=== PATIENT | female | born 1995 | race Caucasian/White ===

== ENCOUNTER 2018-10-03 12:09 | Inpatient (IN) | payer OTHER, MEDICAID ==
[2018-10-03 13:27] LABS: ADD UMIC NO; UR ASCORBIC ACID NEGATIVE (NEGATIVE); UR BILIRUBIN (Dip) NEGATIVE (NEGATIVE); UR BLOOD (Dip) NEGATIVE (NEGATIVE); UR CLARITY CLEAR (CLEAR); UR COLOR YELLOW (YELLOW); UR GLUCOSE (Dip) NEGATIVE (NEGATIVE); UR KETONES (Dip) NEGATIVE (NEGATIVE); UR LEUKOCYTE ESTERASE (Dip) NEGATIVE Leu/ul (NEGATIVE); UR NITRITE (Dip) NEGATIVE (NEGATIVE); UR SPECIFIC GRAVITY (Dip) 1.009 (1.003-1.030); UR TOTAL PROTEIN (Dip) NEGATIVE (NEGATIVE); UR UROBILINOGEN (Dip) NEGATIVE (NEGATIVE)
[2018-10-03 13:30] LABS: ADD MAN DIFF? NO
[2018-10-03 13:32] LABS: WHITE BLOOD COUNT 8.1 10^3/ul (4.8-10.8)
[2018-10-03 13:32] LABS: BASOPHILS % 0.4 % (0.0-2.0); EOSINOPHILS % 0.1 % (0.0-7.0); HEMATOCRIT 36.4 % (37.0-47.0); HEMOGLOBIN 12.5 g/dl (12.0-16.0); LYMPHOCYTES # 0.7 10^3/ul (0.8-2.9); LYMPHOCYTES % 8.5 % (15.0-51.0); MEAN CORPUSCULAR HEMOGLOBIN 32.1 pg (29.0-33.0); MEAN CORPUSCULAR HGB CONC 34.3 g/dl (32.0-37.0); MEAN CORPUSCULAR VOLUME 93.3 fl (82.0-101.0); MEAN PLATELET VOLUME 9.6 fl (7.4-10.4); MONOCYTE # 0.7 10^3/ul (0.3-0.9); MONOCYTES % 8.4 % (0.0-11.0); NEUTROPHIL # 6.6 10^3/ul (1.6-7.5); PLATELET COUNT 232 10^3/UL (140-415); RED CELL DISTRIBUTION WIDTH 12.4 % (11.5-14.5)
[2018-10-03 13:52] LABS: ALANINE AMINOTRANSFERASE 16 IU/L (13-69); ALBUMIN/GLOBULIN RATIO 1.14; ALKALINE PHOSPHATASE 79 IU/L (42-121); ANION GAP 12 (5-13); ASPARTATE AMINO TRANSFERASE 25 IU/L (15-46); BILIRUBIN,INDIRECT 0.2 mg/dl (0-1.1); BILIRUBIN,TOTAL 0.2 mg/dl (0.2-1.3); BLOOD UREA NITROGEN 7 mg/dl (7-20); CALCIUM 9.4 mg/dl (8.4-10.2); CARBON DIOXIDE 25 mmol/L (21-31); CHLORIDE 102 mmol/L (97-110); CREATININE 0.47 mg/dl (0.44-1.00); Estimated GFR > 60 mL/min (>60); GLUCOSE 82 mg/dl (70-220); POTASSIUM 3.7 mmol/L (3.5-5.1); SODIUM 139 mmol/L (135-144); TOTAL PROTEIN 7.5 g/dl (6.1-8.1)
[2018-10-03 13:52] LABS: URIC ACID 3.4 mg/dl (3.1-7.9)
[2018-10-03] MEDS: LABETALOL HCL 20MG INJ IV (15:00)
[2018-10-03] MEDS ORDERED: LABETALOL HCL 20MG INJ IV (15:00)
[2018-10-03] MEDS ORDERED: BETAMET NA PHOS/AC(6 MG/ML) 5ML INJ IM (15:30)
[2018-10-03] MEDS: LACTATED RINGER'S 1,000 ML IV (17:03)
[2018-10-03] MEDS: BETAMET NA PHOS/AC(6 MG/ML) 2 ML INJ SYG IM (17:05)
[2018-10-04] MEDS: LACTATED RINGER'S 1,000 ML IV ×3 (00:41→17:33)
[2018-10-04] MEDS: FERROUS SULFATE (EC) 325 MG TAB PO (09:56)
[2018-10-04] MEDS: PRENATAL VITAMIN PO (09:56)
[2018-10-04 11:00] LABS: AMPHETAMINE/METHAMPHETAMINE Negative (NEGATIVE); BARBITURATES Negative (NEGATIVE); BENZODIAZEPINES Negative (NEGATIVE); CANNABINOIDS Positive (NEGATIVE); COCAINE Negative (NEGATIVE); OPIATES Negative (NEGATIVE)
[2018-10-04] MEDS: BETAMET NA PHOS/AC(6 MG/ML) 2 ML INJ SYG IM (17:04)
[2018-10-04 17:22] LABS: COLLECTION PERIOD 24 hrs
[2018-10-04 17:33] LABS: SCRET 0.45 mg/dl (0.44-1.00)
[2018-10-04 18:07] LABS: CREATININE,URINE RANDOM 32.11 mg/dl (20-320)
[2018-10-04 18:14] LABS: COLLECTION PERIOD 24 hrs; CREATININE CLEARANCE 180.9 mls/min (84.0-162.0); VOLUME 3650 ml/24hrs
[2018-10-04 19:33] LABS: 24HR URINE TOTAL PROTEIN 547.5 mg/24hrs (42.0-225.0); VOLUME 3650 mls
[2018-10-05] MEDS: LACTATED RINGER'S 1,000 ML IV ×2 (03:45→06:47)
[2018-10-05] MEDS: PRENATAL VITAMIN PO (08:46)
[2018-10-05] MEDS: FERROUS SULFATE (EC) 325 MG TAB PO (08:46)
== END 2018-10-05 18:49 | disposition home or self-care (01) | DRG 833 ==
LOC: OBT 12:09 → L-D 12:11 → OBT 14:40 → L-D 14:40 → PP1 16:34
DX: O26.892 Other specified pregnancy related conditions, second trimester (principal); R03.0 Elevated blood-pressure reading, without diagnosis of hypertension; R51 Headache; Z3A.25 25 weeks gestation of pregnancy
CPT/HCPCS: 76815; 80053; 80307; 81003; 82575; 84156; 84560; 85025

== ENCOUNTER 2018-10-09 09:31 | Outpatient (CLI) | payer OTHER ==
[2018-10-09 10:37] LABS: ADD UMIC YES; UR ASCORBIC ACID NEGATIVE (NEGATIVE); UR BILIRUBIN (Dip) NEGATIVE (NEGATIVE); UR BLOOD (Dip) 2+ mg/dL (NEGATIVE); UR CLARITY CLEAR (CLEAR); UR COLOR COLORLESS (YELLOW); UR GLUCOSE (Dip) NEGATIVE (NEGATIVE); UR KETONES (Dip) NEGATIVE (NEGATIVE); UR LEUKOCYTE ESTERASE (Dip) NEGATIVE Leu/ul (NEGATIVE); UR NITRITE (Dip) NEGATIVE (NEGATIVE); UR RBC 0 /HPF (0-5); UR SPECIFIC GRAVITY (Dip) 1.001 (1.003-1.030); UR TOTAL PROTEIN (Dip) NEGATIVE (NEGATIVE); UR UROBILINOGEN (Dip) NEGATIVE (NEGATIVE); UR WBC 0 /HPF (0-5)
[2018-10-09 10:42] LABS: ADD MAN DIFF? NO
[2018-10-09 10:44] LABS: WHITE BLOOD COUNT 10.9 10^3/ul (4.8-10.8)
[2018-10-09 10:44] LABS: BASOPHILS % 0.4 % (0.0-2.0); EOSINOPHILS % 0.2 % (0.0-7.0); HEMATOCRIT 36.9 % (37.0-47.0); HEMOGLOBIN 12.6 g/dl (12.0-16.0); LYMPHOCYTES # 1.8 10^3/ul (0.8-2.9); LYMPHOCYTES % 16.1 % (15.0-51.0); MEAN CORPUSCULAR HEMOGLOBIN 31.6 pg (29.0-33.0); MEAN CORPUSCULAR HGB CONC 34.1 g/dl (32.0-37.0); MEAN CORPUSCULAR VOLUME 92.5 fl (82.0-101.0); MEAN PLATELET VOLUME 9.6 fl (7.4-10.4); MONOCYTE # 0.8 10^3/ul (0.3-0.9); NEUTROPHIL # 7.9 10^3/ul (1.6-7.5); NEUTROPHILS % 73.1 % (39.0-77.0); PLATELET COUNT 254 10^3/UL (140-415); RED BLOOD COUNT 3.99 10^6/ul (4.20-5.40); RED CELL DISTRIBUTION WIDTH 12.2 % (11.5-14.5)
[2018-10-09 11:00] LABS: ALANINE AMINOTRANSFERASE 12 IU/L (13-69); ALBUMIN 3.8 g/dl (3.3-4.9); ALBUMIN/GLOBULIN RATIO 1.11; ALKALINE PHOSPHATASE 69 IU/L (42-121); ANION GAP 9 (5-13); ASPARTATE AMINO TRANSFERASE 16 IU/L (15-46); BILIRUBIN,INDIRECT 0.1 mg/dl (0-1.1); BILIRUBIN,TOTAL 0.1 mg/dl (0.2-1.3); BLOOD UREA NITROGEN 8 mg/dl (7-20); CALCIUM 9.1 mg/dl (8.4-10.2); CARBON DIOXIDE 27 mmol/L (21-31); CHLORIDE 102 mmol/L (97-110); CREATININE 0.39 mg/dl (0.44-1.00); Estimated GFR > 60 mL/min (>60); GLUCOSE 79 mg/dl (70-220); POTASSIUM 4.5 mmol/L (3.5-5.1); SODIUM 138 mmol/L (135-144); TOTAL PROTEIN 7.2 g/dl (6.1-8.1); URIC ACID 2.7 mg/dl (3.1-7.9)
[2018-10-09 11:03] LABS: INR 0.87; PROTIME 11.9 Sec (11.9-14.9); PT RATIO 0.9
[2018-10-09 11:04] LABS: PARTIAL THROMBOPLASTIN TIME 25.2 Sec (23.0-35.0)
== END 2018-10-09 12:50 | disposition home or self-care (01) ==
LOC: OBT 09:31 → L-D 09:31 → OBT 12:50
DX: O13.2 Gestational [pregnancy-induced] hypertension without significant proteinuria, second trimester (principal); Z3A.26 26 weeks gestation of pregnancy
CPT/HCPCS: 76815; 76817; 80053; 81001; 82731; 84560; 85025; 85610; 85730

== ENCOUNTER 2018-10-15 10:26 | Outpatient (CLI) | payer OTHER ==
[2018-10-15 11:02] LABS: ADD MAN DIFF? NO
[2018-10-15 11:04] LABS: BASOPHIL # 0.1 10^3/ul (0.0-0.1); BASOPHILS % 0.5 % (0.0-2.0); EOSINOPHILS % 0.3 % (0.0-7.0); HEMATOCRIT 35.3 % (37.0-47.0); HEMOGLOBIN 12.1 g/dl (12.0-16.0); LYMPHOCYTES # 1.4 10^3/ul (0.8-2.9); LYMPHOCYTES % 13.6 % (15.0-51.0); MEAN CORPUSCULAR HEMOGLOBIN 31.8 pg (29.0-33.0); MEAN CORPUSCULAR HGB CONC 34.3 g/dl (32.0-37.0); MEAN CORPUSCULAR VOLUME 92.7 fl (82.0-101.0); MEAN PLATELET VOLUME 9.7 fl (7.4-10.4); MONOCYTE # 0.6 10^3/ul (0.3-0.9); MONOCYTES % 6.1 % (0.0-11.0); NEUTROPHIL # 7.9 10^3/ul (1.6-7.5); NEUTROPHILS % 77.7 % (39.0-77.0); PLATELET COUNT 225 10^3/UL (140-415); RED BLOOD COUNT 3.81 10^6/ul (4.20-5.40); RED CELL DISTRIBUTION WIDTH 12.4 % (11.5-14.5)
[2018-10-15 11:04] LABS: WHITE BLOOD COUNT 10.2 10^3/ul (4.8-10.8)
[2018-10-15 11:11] LABS: UR COLOR YELLOW (YELLOW)
[2018-10-15 11:12] LABS: UR BILIRUBIN (Dip) NEGATIVE (NEGATIVE); UR BLOOD (Dip) NEGATIVE (NEGATIVE); UR CLARITY CLEAR (CLEAR); UR GLUCOSE (Dip) NEGATIVE (NEGATIVE); UR KETONES (Dip) NEGATIVE (NEGATIVE); UR NITRITE (Dip) NEGATIVE (NEGATIVE); UR SPECIFIC GRAVITY (Dip) 1.015 (1.003-1.030); UR TOTAL PROTEIN (Dip) TRACE mg/dl (NEGATIVE); URINE PH (Dip) 6 (5.0-9.0)
[2018-10-15 11:13] LABS: ADD UMIC YES; UR ASCORBIC ACID NEGATIVE (NEGATIVE); UR LEUKOCYTE ESTERASE (Dip) NEGATIVE Leu/ul (NEGATIVE); UR UROBILINOGEN (Dip) NEGATIVE (NEGATIVE)
[2018-10-15 11:14] LABS: UR MUCUS FEW /HPF (NONE SEEN); UR RBC 1 /HPF (0-5); UR SQUAMOUS EPITHELIAL CELL FEW /HPF (FEW); UR WBC 1 /HPF (0-5)
[2018-10-15 11:22] LABS: ALANINE AMINOTRANSFERASE 10 IU/L (13-69); ALBUMIN 3.6 g/dl (3.3-4.9); ALBUMIN/GLOBULIN RATIO 1.12; ALKALINE PHOSPHATASE 70 IU/L (42-121); ANION GAP 7 (5-13); ASPARTATE AMINO TRANSFERASE 17 IU/L (15-46); BILIRUBIN,INDIRECT 0.3 mg/dl (0-1.1); BILIRUBIN,TOTAL 0.3 mg/dl (0.2-1.3); BLOOD UREA NITROGEN 9 mg/dl (7-20); CALCIUM 8.9 mg/dl (8.4-10.2); CARBON DIOXIDE 25 mmol/L (21-31); CHLORIDE 104 mmol/L (97-110); CREATININE 0.41 mg/dl (0.44-1.00); Estimated GFR > 60 mL/min (>60); GLUCOSE 113 mg/dl (70-220); POTASSIUM 3.7 mmol/L (3.5-5.1); SODIUM 136 mmol/L (135-144); TOTAL PROTEIN 6.8 g/dl (6.1-8.1); URIC ACID 3.3 mg/dl (3.1-7.9)
[2018-10-15 11:25] LABS: INR 0.94; PROTIME 12.7 Sec (11.9-14.9)
[2018-10-15 11:26] LABS: PARTIAL THROMBOPLASTIN TIME 25.8 Sec (23.0-35.0)
== END 2018-10-15 14:35 | disposition home or self-care (01) ==
LOC: OBT 10:26 → L-D 10:26 → OBT 14:35
DX: O14.92 Unspecified pre-eclampsia, second trimester (principal); Z3A.27 27 weeks gestation of pregnancy
CPT/HCPCS: 76818; 80053; 81001; 84560; 85025; 85384; 85610; 85730

== ENCOUNTER 2018-11-30 10:50 | Outpatient (CLI) | payer OTHER ==
[2018-11-30 12:31] LABS: ADD MAN DIFF? NO
[2018-11-30 12:40] LABS: BASOPHILS % 0.3 % (0.0-2.0); EOSINOPHILS % 0.4 % (0.0-7.0); HEMATOCRIT 36.7 % (37.0-47.0); HEMOGLOBIN 12.5 g/dl (12.0-16.0); LYMPHOCYTES # 1.4 10^3/ul (0.8-2.9); LYMPHOCYTES % 13.1 % (15.0-51.0); MEAN CORPUSCULAR HEMOGLOBIN 31.6 pg (29.0-33.0); MEAN CORPUSCULAR HGB CONC 34.1 g/dl (32.0-37.0); MEAN CORPUSCULAR VOLUME 92.7 fl (82.0-101.0); MEAN PLATELET VOLUME 10.2 fl (7.4-10.4); MONOCYTE # 0.7 10^3/ul (0.3-0.9); MONOCYTES % 6.3 % (0.0-11.0); NEUTROPHIL # 8.1 10^3/ul (1.6-7.5); NEUTROPHILS % 78.4 % (39.0-77.0); PLATELET COUNT 233 10^3/UL (140-415); RED BLOOD COUNT 3.96 10^6/ul (4.20-5.40); RED CELL DISTRIBUTION WIDTH 13.2 % (11.5-14.5)
[2018-11-30 12:40] LABS: WHITE BLOOD COUNT 10.3 10^3/ul (4.8-10.8)
[2018-11-30 12:50] LABS: UR BACTERIA FEW /HPF (NONE SEEN); UR RBC 1 /HPF (0-5); UR SQUAMOUS EPITHELIAL CELL FEW /HPF (FEW); UR WBC 1 /HPF (0-5)
[2018-11-30 12:57] LABS: ALANINE AMINOTRANSFERASE 8 IU/L (13-69); ALBUMIN 3.6 g/dl (3.3-4.9); ALBUMIN/GLOBULIN RATIO 1.12; ALKALINE PHOSPHATASE 120 IU/L (42-121); ANION GAP 3 (5-13); ASPARTATE AMINO TRANSFERASE 19 IU/L (15-46); BILIRUBIN,INDIRECT 0.4 mg/dl (0-1.1); BILIRUBIN,TOTAL 0.4 mg/dl (0.2-1.3); BLOOD UREA NITROGEN 7 mg/dl (7-20); CALCIUM 9.7 mg/dl (8.4-10.2); CARBON DIOXIDE 26 mmol/L (21-31); CHLORIDE 106 mmol/L (97-110); CREATININE 0.45 mg/dl (0.44-1.00); Estimated GFR > 60 mL/min (>60); GLUCOSE 89 mg/dl (70-220); POTASSIUM 4.2 mmol/L (3.5-5.1); SODIUM 135 mmol/L (135-144); TOTAL PROTEIN 6.8 g/dl (6.1-8.1); URIC ACID 3.4 mg/dl (3.1-7.9)
[2018-11-30 13:10] LABS: INR 0.92; PARTIAL THROMBOPLASTIN TIME 26.1 Sec (23.0-35.0); PROTIME 12.5 Sec (11.9-14.9)
[2018-11-30 13:35] LABS: ADD UMIC NO; UR ASCORBIC ACID NEGATIVE (NEGATIVE); UR BILIRUBIN (Dip) NEGATIVE (NEGATIVE); UR BLOOD (Dip) NEGATIVE (NEGATIVE); UR CLARITY CLEAR (CLEAR); UR COLOR YELLOW (YELLOW); UR GLUCOSE (Dip) NEGATIVE (NEGATIVE); UR KETONES (Dip) NEGATIVE (NEGATIVE); UR LEUKOCYTE ESTERASE (Dip) NEGATIVE Leu/ul (NEGATIVE); UR NITRITE (Dip) NEGATIVE (NEGATIVE); UR SPECIFIC GRAVITY (Dip) 1.013 (1.003-1.030); UR TOTAL PROTEIN (Dip) NEGATIVE (NEGATIVE); UR UROBILINOGEN (Dip) NEGATIVE (NEGATIVE)
== END 2018-11-30 13:40 | disposition home or self-care (01) ==
LOC: OBT 10:50 → L-D 10:52 → OBT 13:40
DX: O14.93 Unspecified pre-eclampsia, third trimester (principal); Z3A.33 33 weeks gestation of pregnancy
CPT/HCPCS: 76815; 80053; 81003; 84560; 85025; 85384; 85610; 85730

== ENCOUNTER 2018-12-25 05:32 | Inpatient (IN) | payer OTHER ==
[2018-12-25] MEDS ORDERED: METHYLERGONOVINE 0.2 MG INJ IM (06:00)
[2018-12-25] MEDS ORDERED: OXYTOCIN 30 UNITS/LR 500 ML IV ×2 (06:00)
[2018-12-25] MEDS ORDERED: LIDOCAINE 1% (MPF) 30 ML INJ INJ (06:00)
[2018-12-25] MEDS ORDERED: MISOPROSTOL 200 MCG TAB PR (06:00)
[2018-12-25] MEDS ORDERED: CARBOPROST 250 MCG INJ IM (06:00)
[2018-12-25] MEDS ORDERED: BUTORPHANOL 2 MG INJ IV (06:00)
[2018-12-25 06:14] LABS: ADD MAN DIFF? NO
[2018-12-25 06:18] LABS: BASOPHILS % 0.3 % (0.0-2.0); EOSINOPHILS # 0.1 10^3/ul (0.0-0.5); EOSINOPHILS % 0.5 % (0.0-7.0); HEMOGLOBIN 12.7 g/dl (12.0-16.0); LYMPHOCYTES # 1.7 10^3/ul (0.8-2.9); LYMPHOCYTES % 17.2 % (15.0-51.0); MEAN CORPUSCULAR HEMOGLOBIN 32.3 pg (29.0-33.0); MEAN CORPUSCULAR HGB CONC 34.3 g/dl (32.0-37.0); MEAN CORPUSCULAR VOLUME 94.1 fl (82.0-101.0); MEAN PLATELET VOLUME 10.4 fl (7.4-10.4); MONOCYTE # 0.7 10^3/ul (0.3-0.9); MONOCYTES % 6.9 % (0.0-11.0); NEUTROPHIL # 7.3 10^3/ul (1.6-7.5); NEUTROPHILS % 74.1 % (39.0-77.0); PLATELET COUNT 230 10^3/UL (140-415); RED BLOOD COUNT 3.93 10^6/ul (4.20-5.40); RED CELL DISTRIBUTION WIDTH 12.7 % (11.5-14.5)
[2018-12-25 06:18] LABS: WHITE BLOOD COUNT 9.9 10^3/ul (4.8-10.8)
[2018-12-25] MEDS: LACTATED RINGER'S 1,000 ML IV ×2 (06:20→13:52)
[2018-12-25 06:25] LABS: ADD UMIC YES; UR ASCORBIC ACID NEGATIVE (NEGATIVE); UR BACTERIA FEW /HPF (NONE SEEN); UR BILIRUBIN (Dip) NEGATIVE (NEGATIVE); UR BLOOD (Dip) NEGATIVE (NEGATIVE); UR CLARITY CLOUDY (CLEAR); UR COLOR YELLOW (YELLOW); UR GLUCOSE (Dip) NEGATIVE (NEGATIVE); UR KETONES (Dip) NEGATIVE (NEGATIVE); UR LEUKOCYTE ESTERASE (Dip) 3+ Leu/ul (NEGATIVE); UR NITRITE (Dip) NEGATIVE (NEGATIVE); UR RBC 3 /HPF (0-5); UR SQUAMOUS EPITHELIAL CELL MANY /HPF (FEW); UR TOTAL PROTEIN (Dip) NEGATIVE (NEGATIVE); UR UROBILINOGEN (Dip) NEGATIVE (NEGATIVE); UR WBC 17 /HPF (0-5)
[2018-12-25 06:38] LABS: INR 0.87; PROTIME 11.9 Sec (11.9-14.9); PT RATIO 0.9
[2018-12-25 06:39] LABS: PARTIAL THROMBOPLASTIN TIME 25.3 Sec (23.0-35.0)
[2018-12-25 06:55] LABS: ALANINE AMINOTRANSFERASE 19 IU/L (13-69); ALBUMIN 3.6 g/dl (3.3-4.9); ALBUMIN/GLOBULIN RATIO 0.97; ALKALINE PHOSPHATASE 170 IU/L (42-121); ANION GAP 8 (5-13); ASPARTATE AMINO TRANSFERASE 27 IU/L (15-46); BILIRUBIN,INDIRECT 0.4 mg/dl (0-1.1); BILIRUBIN,TOTAL 0.4 mg/dl (0.2-1.3); BLOOD UREA NITROGEN 11 mg/dl (7-20); CARBON DIOXIDE 23 mmol/L (21-31); CHLORIDE 107 mmol/L (97-110); CREATININE 0.46 mg/dl (0.44-1.00); Estimated GFR > 60 mL/min (>60); GLUCOSE 75 mg/dl (70-220); POTASSIUM 4.3 mmol/L (3.5-5.1); SODIUM 138 mmol/L (135-144); TOTAL PROTEIN 7.3 g/dl (6.1-8.1); URIC ACID 4.1 mg/dl (3.1-7.9)
[2018-12-25 07:26] LABS: HEPATITIS B SURFACE ANTIGEN NEGATIVE (NEGATIVE)
[2018-12-25] MEDS: MISOPROSTOL 50 MCG CAPSULE PO ×4 (07:55→20:14)
[2018-12-25 15:12] LABS: RAPID PLASMA REAGIN NONREACTIVE (NR)
[2018-12-26] MEDS: MISOPROSTOL 50 MCG CAPSULE PO ×2 (00:06→04:25)
[2018-12-26] MEDS: LACTATED RINGER'S 1,000 ML IV ×5 (00:07→15:34)
[2018-12-26] MEDS: OXYTOCIN 30 UNITS/LR 500 ML IV ×2 (11:29→19:06)
[2018-12-26] MEDS ORDERED: FENTAnyl 2MCG/ML-ROPIV 0.2% 100 ML (14:41)
[2018-12-26] MEDS ORDERED: MINERAL OIL LIGHT 10 ML VIAL TOP (17:50)
[2018-12-26] MEDS ORDERED: DIPHENHYDRAMINE 25 MG CAP PO (19:30)
[2018-12-26] MEDS ORDERED: OXYTOCIN 30 UNITS/LR 500 ML IV (19:30)
[2018-12-26] MEDS ORDERED: CARBOPROST 250 MCG INJ IM (19:30)
[2018-12-26] MEDS ORDERED: ONDANSETRON 4 MG TAB PO (19:30)
[2018-12-26] MEDS ORDERED: ONDANSETRON 4 MG INJ IV (19:30)
[2018-12-26] MEDS ORDERED: MISOPROSTOL 200 MCG TAB PR (19:30)
[2018-12-26] MEDS ORDERED: NA PHOSPHATE/BIPHOS 133 ML ENEMA PR (19:30)
[2018-12-26] MEDS ORDERED: HYDROCODONE/APAP (5/325) TAB PO ×2 (19:30)
[2018-12-26] MEDS ORDERED: DIPHENHYDRAMINE 50 MG INJ IV (19:30)
[2018-12-26] MEDS ORDERED: SENNA/DOCUSATE NA (8.6MG/50MG) TAB PO (19:30)
[2018-12-26] MEDS ORDERED: DIBUCAINE 1% 30 GM OINT TOP (19:30)
[2018-12-26] MEDS: SENNA/DOCUSATE NA (8.6MG/50MG) TAB PO (20:53)
[2018-12-26] MEDS: LANOLIN HPA 1 PKT TOP (20:53)
[2018-12-26] MEDS: WITCH HAZEL/GLYCERIN PAD PR (20:54)
[2018-12-26] MEDS: BENZOCAINE 20% 56 ML SPRAY TOP (20:54)
[2018-12-26] MEDS: LACTATED RINGER'S 1,000 ML IV* (23:36)
[2018-12-27] MEDS: IBUPROFEN 600 MG TAB PO ×5 (00:30→23:45)
[2018-12-27] MEDS: LACTATED RINGER'S 1,000 ML IV* ×3 (03:08→20:54)
[2018-12-27 08:16] LABS: ADD MAN DIFF? NO
[2018-12-27] MEDS: SENNA/DOCUSATE NA (8.6MG/50MG) TAB PO ×2 (08:26→21:03)
[2018-12-27 08:31] LABS: WHITE BLOOD COUNT 14.7 10^3/ul (4.8-10.8)
[2018-12-27 08:31] LABS: BASOPHILS % 0.1 % (0.0-2.0); EOSINOPHILS % 0.1 % (0.0-7.0); HEMATOCRIT 33.2 % (37.0-47.0); HEMOGLOBIN 11.1 g/dl (12.0-16.0); LYMPHOCYTES # 1.6 10^3/ul (0.8-2.9); LYMPHOCYTES % 10.8 % (15.0-51.0); MEAN CORPUSCULAR HEMOGLOBIN 31.6 pg (29.0-33.0); MEAN CORPUSCULAR HGB CONC 33.4 g/dl (32.0-37.0); MEAN CORPUSCULAR VOLUME 94.6 fl (82.0-101.0); MEAN PLATELET VOLUME 10.8 fl (7.4-10.4); MONOCYTES % 6.4 % (0.0-11.0); NEUTROPHIL # 12.1 10^3/ul (1.6-7.5); NEUTROPHILS % 81.8 % (39.0-77.0); PLATELET COUNT 174 10^3/UL (140-415); RED BLOOD COUNT 3.51 10^6/ul (4.20-5.40); RED CELL DISTRIBUTION WIDTH 13.1 % (11.5-14.5)
[2018-12-27] MEDS: WITCH HAZEL/GLYCERIN PAD PR (12:48)
[2018-12-27] MEDS: BENZOCAINE 20% 56 ML SPRAY TOP (12:48)
[2018-12-28] MEDS: LACTATED RINGER'S 1,000 ML IV* ×2 (03:08→11:08)
[2018-12-28] MEDS: IBUPROFEN 600 MG TAB PO ×2 (05:31→12:06)
[2018-12-28] MEDS: SENNA/DOCUSATE NA (8.6MG/50MG) TAB PO (08:47)
[2018-12-28] MEDS: MEASLES,MUMPS,RUBELLA VACCINE INJ SC* (09:00)
[2018-12-28] MEDS: DIPHTH/TET/ACEL PERTUSS (ADULT) 0.5 ML VIAL IM* (09:00)
[2018-12-28] MEDS: VARICELLA VACCINE LIVE/PF 1,350 UNIT/0.5 ML ML SC* (09:00)
[2018-12-28] MEDS: MAGNESIUM HYDROXIDE 30ML CUP PO (09:27)
== END 2018-12-28 15:25 | disposition home or self-care (01) | DRG 807 ==
LOC: L-D 05:32 → PP1 12-26 20:16
PROC: 10E0XZZ Delivery of Products of Conception, External Approach (ICD-10-PCS; principal; 2018-12-26)
DX: O14.94 Unspecified pre-eclampsia, complicating childbirth (principal); Z37.0 Single live birth; O69.81X0 Labor and delivery complicated by cord around neck, without compression, not applicable or unspecified; O70.1 Second degree perineal laceration during delivery; Z3A.37 37 weeks gestation of pregnancy
CPT/HCPCS: 62322; 76815; 80053; 81001; 84560; 85025; 85610; 85730; 86592; 86850; 86900; 86901; 87340; 90716